=== PATIENT | female | born 1995 | race Caucasian/White ===

== ENCOUNTER 2017-09-10 15:02 | Emergency (ER) | payer BC ==
[~2017-09-10] VITALS: Ht 162.6 cm; Wt 68.0 kg
[2017-09-10 15:08] VITALS: Ht 162.6 cm; Wt 68.0 kg
[2017-09-10 16:50] VITALS: BP 117/66
== END 2017-09-10 16:50 | disposition home or self-care (01) ==
LOC: ED 15:02
DX: O91.22 Nonpurulent mastitis associated with the puerperium (principal)

== ENCOUNTER 2018-05-13 10:35 | Emergency (ER) | payer BC ==
[~2018-05-13] VITALS: Ht 162.6 cm; Wt 63.5 kg
[2018-05-13 10:49] VITALS: Ht 162.6 cm; Wt 63.5 kg
[2018-05-13 11:32] LABS: BASOPHIL % 0.2 % (0-2); PLATELET COUNT 307 x10^3mcL (130-400)
[2018-05-13 11:41] LABS: CALCIUM 8.8 mg/dL (8.5-10.1); CARBON DIOXIDE 27.6 mmol/L (21-32); CHLORIDE SERUM 106 mmol/L (98-107); CREATININE SERUM 0.7 mg/dL (0.6-1.0); GFR1 > 60 mL/min; GLUCOSE SERUM 105 mg/dL (74-106); POTASSIUM SERUM 3.8 mmol/L (3.5-5.1); SODIUM SERUM 139 mmol/L (136-145)
[2018-05-13 11:46] LABS: ALBUMIN 3.6 g/dL (3.4-5.0); ALKALINE PHOSPHATASE 113 U/L (46-116); ALT/SGPT 43 U/L (14-59); AST/SGOT 16 U/L (15-37); BILIRUBIN TOTAL 0.1 mg/dL (0.20-1.00); LIPASE 106 IU/L (73-393)
[2018-05-13 12:54] VITALS: BP 125/62
== END 2018-05-13 12:54 | disposition home or self-care (01) ==
LOC: ED 10:35
PROVIDERS: Emergency Medicine
DX: K80.20 Calculus of gallbladder without cholecystitis without obstruction (principal); D72.829 Elevated white blood cell count, unspecified
CPT/HCPCS: 36415; J1885; Q0162